=== PATIENT | male | born 1965 | race Caucasian/White ===

== ENCOUNTER 2019-05-21 11:25 | Outpatient (CLI) | payer OTHER, SELFPAY ==
--- NOTE | ~2019-05-21 | XR_ITS ---
EXAMINATION: HAND-GEO ARTHRITIS 3+VIEWS DATE: 05/21/2019 12:32 INDICATION: Unspecified osteoarthritis TECHNIQUE: Posteroanterior, lateral, and oblique views of the left and of the right hands as well as a ballcatchers view of both hands were obtained. COMPARISON: None. FINDINGS: Alignment is normal at both hands. No fracture. Small round metallic BB projecting over the soft tiss ues between the heads of the right third and fourth metacarpals. Moderate osteoarthritis at the right fifth proximal interphalangeal joint. Otherwise symmetric pattern of minimal to mild osteoarthritis at multiple metacarpophalangeal and predominantly distal interphalangeal joints. No cortical erosions to suggest inflammatory arthritis. Soft tissue swelling about the hands, wrists and distal forearms with subcutaneous edema most prominent along the ulnar side of the right wrist. IMPRESSION: 1. Disproportionate moderate osteoarthritis at the right fifth proximal interphalangeal joint suggest ing this is secondary to either prior trauma or infection. Otherwise typical symmetric pattern of min imal to mild polyarticular osteoarthritis at the bilateral hands. 2. Small metallic BB projecting over the soft tissues between the heads of the right third and fourth metacarpals. Reviewed, dictated and finalized at location A. TYPE OPERATOR IMPRESSION: 1. Disproportionate moderate osteoarthritis at the right fifth proximal interph alangeal joint suggesting this is secondary to either prior trauma or infection . Otherwise typical symmetric pattern of minimal to mild polyarticular osteoart hritis at the bilateral hands. 2. Small metallic BB projecting over the soft tissues between the heads of the right third and fourth metacarpals.
--- NOTE | ~2019-05-21 | XR_ITS ---
EXAMINATION: XR foot LT standing 2V EXAM DATE: 05/21/2019 12:32 INDICATION: No known recent injury provided at this time. Pain of the left foot. TECHNIQUE: Frontal and lateral projections of the left foot, standing.. There is no prior study for comparison. FINDINGS: Small to moderate-sized posterior and inferior left calcaneal spurs. There is old fifth me tatarsal base avulsion fracture. There is mild polyarticular midfoot and metatarsophalangeal primary osteoarthritis. There are no bony erosions identified. There are no acute fractures or dislocations identified. There is no subcutaneous gas. The soft tissue is unremarkable. There are no radiopaqu e foreign bodies. IMPRESSION: 1. Mild polyarticular left foot osteoarthritis. 2. Calcaneal spurs. Reviewed, dictated and finalized at location B. OW OPERATOR
--- NOTE | ~2019-05-21 | XR_ITS ---
EXAMINATION: XR foot RT standing 2V EXAM DATE: 05/21/2019 12:32 INDICATION: No known recent injury provided at this time. Pain of the right foot. TECHNIQUE: Frontal and lateral projections of the right foot, standing. There is no prior study for comparison. FINDINGS: There is mild polyarticular midfoot and metatarsophalangeal primary osteoarthritis. Small to moderate-sized posterior and inferior right calcaneal spurs. There are no bony erosions identified . There are no acute fractures or dislocations identified. There is no subcutaneous gas. The soft t issue is unremarkable. There are no radiopaque foreign bodies. IMPRESSION: 1. Mild polyarticular right foot osteoarthritis. 2. Calcaneal spurs. Reviewed, dictated and finalized at location B. N PROG COORD
[2019-05-21 17:27] LABS: Erythrocyte Sedimentation Rate 25 mm/hr (0-20)
[2019-05-21 17:59] LABS: CRP 3.4 mg/dL (<1.0)
[2019-05-24 12:56] LABS: Angiotensin Converting Enzyme 31 U/L (9-67)
[2019-05-25 05:07] LABS: Thyroid Peroxidase Antibodies <1 IU/mL (<9)
[2019-05-25 16:44] LABS: ANCA Screen Negative (Negative); Myeloperoxidase Ab <1.0 AI (<1.0); Proteinase-3 Ab <1.0 AI (<1.0); S cerevisiae Ab (IgA) 5.3 U (<=20.0)
== END 2019-05-21 11:26 | disposition home or self-care (01) ==
PROVIDERS: Internal Medicine; Visit Provider Internal Medicine Hematology & Oncology
DX: R70.0 Elevated erythrocyte sedimentation rate (principal); M19.90 Unspecified osteoarthritis, unspecified site; M19.042 Primary osteoarthritis, left hand; M19.041 Primary osteoarthritis, right hand; Z18.89 Other specified retained foreign body fragments; M19.072 Primary osteoarthritis, left ankle and foot; M77.32 Calcaneal spur, left foot; M19.071 Primary osteoarthritis, right ankle and foot; M77.31 Calcaneal spur, right foot
CPT/HCPCS: 36415; 73130; 73620; 82164; 85652; 86021; 86140; 86376; 86671

== ENCOUNTER 2019-09-02 10:38 | Outpatient (CLI) | payer OTHER, SELFPAY ==
[2019-09-02 12:45] LABS: CRP 2.2 mg/dL (<1.0)
[2019-09-02 14:09] LABS: Erythrocyte Sedimentation Rate 58 mm/hr (0-20)
== END 2019-09-02 10:39 | disposition home or self-care (01) ==
PROVIDERS: PCP Family Medicine Adolescent Medicine; Visit Provider Internal Medicine
DX: R70.0 Elevated erythrocyte sedimentation rate (principal); M19.90 Unspecified osteoarthritis, unspecified site
CPT/HCPCS: 36415; 85652; 86140

== ENCOUNTER 2019-11-03 10:29 | Outpatient (CLI) | payer OTHER, SELFPAY ==
[2019-11-03 12:35] LABS: Add Urine Microscopic? NO; Appearance Urine Clear (Clear); Bilirubin Urine Negative (Negative); Blood Urine Negative (Negative); Color Urine Yellow (Yellow); Glucose Urine UA Negative (Negative); Ketones Urine Negative (Negative); Leukocyte Esterase Ur Negative LEU/UL (Negative); Nitrate Urine Negative (Negative); Protein Urine Negative (Negative); Specific Grav Ur 1.015 (1.001-1.035); Urobilinogen Urine Negative mg/dL (<2.0)
[2019-11-03 12:49] LABS: CRP 1.4 mg/dL (<1.0)
[2019-11-03 12:55] LABS: Erythrocyte Sedimentation Rate 50 mm/hr (0-20)
== END 2019-11-03 10:30 | disposition home or self-care (01) ==
PROVIDERS: PCP Family Medicine Adolescent Medicine; Visit Provider Internal Medicine
DX: M19.90 Unspecified osteoarthritis, unspecified site (principal); Z79.899 Other long term (current) drug therapy; R70.0 Elevated erythrocyte sedimentation rate; M35.3 Polymyalgia rheumatica
CPT/HCPCS: 36415; 81003; 85652; 86140

== ENCOUNTER 2020-04-19 15:22 | Outpatient (CLI) | payer OTHER, SELFPAY ==
[2020-04-19 16:50] LABS: Erythrocyte Sedimentation Rate 20 mm/hr (0-20)
[2020-04-19 16:53] LABS: CRP 1.5 mg/dL (<1.0)
== END 2020-04-19 15:23 | disposition home or self-care (01) ==
LOC: ANHLAB 15:23
PROVIDERS: Family Provider Family Medicine Adolescent Medicine; PCP Family Medicine Adolescent Medicine; Visit Provider Internal Medicine
DX: M35.3 Polymyalgia rheumatica (principal)
CPT/HCPCS: 36415; 85652; 86140

== ENCOUNTER 2020-10-13 08:06 | Outpatient (CLI) | payer OTHER, SELFPAY ==
[2020-10-13 08:26] LABS: Hematocrit 42.6 % (42.0-52.0); Hemoglobin 14.3 g/dL (14.0-18.0); Mean Corpuscular HGB Conc 33.6 g/dl (32-36); Mean Corpuscular Hemoglobin 29.9 pg (26-34); Mean Corpuscular Volume 89.1 fl (80-100); Mean Platelet Volume 8.8 fl (7.4-10.4); Platelet Count Result 201 k/mm3 (150-375); Red Blood Count 4.78 M/mm3 (4.6-6.20); Red Cell Distribution Width 14.2 % (11.5-14.5); White Blood Count 7.1 K/mm3 (4.5-10.0)
[2020-10-13 10:22] LABS: Add Urine Microscopic? YES; Appearance Urine Sl Cloudy (Clear); Color Urine Yellow (Yellow); pH Urine 6.5 (5.0-9.0)
[2020-10-13 10:23] LABS: Blood Urine Negative (Negative); Glucose Urine UA Negative (Negative); Ketones Urine Negative (Negative); Protein Urine Trace mg/dL (Negative)
[2020-10-13 10:30] LABS: Bilirubin Urine Negative (Negative); Leukocyte Esterase Ur Negative LEU/UL (Negative); Nitrate Urine Negative (Negative); Urobilinogen Urine 0.2 mg/dL (<2.0)
[2020-10-13 10:32] LABS: RBC Urine None seen /hpf (0-2); Squamous Epithelial Cell Urine Few /hpf (Few); WBC Urine 0-3 /hpf (0-3)
[2020-10-13 10:33] LABS: Bacteria Urine None seen /hpf
[2020-10-13 11:54] LABS: Alanine Aminotransferase 23 U/L (4-50); Albumin Level 4.4 g/dL (3.5-5.1); Alkaline Phosphatase 81 U/L (38-126); Anion Gap 10 mmol/L (8-16); Aspartate Amino Transferase 28 U/L (17-59); Blood Urea Nitrogen 16 mg/dL (9-20); CRP 1.5 mg/dL (<1.0); Carbon Dioxide 28 mmol/L (22-30); Chloride 105 mmol/L (98-107); Estimated Glomerular Filt Rate > 60; Glucose 102 mg/dL (65-110); Potassium 4.3 mmol/L (3.4-5.0); Sodium 143 mmol/L (137-145); Uric Acid 7.3 mg/dL (3.5-8.5)
[2020-10-13 13:09] LABS: Erythrocyte Sedimentation Rate 39 mm/hr (0-20)
== END 2020-10-13 08:07 | disposition home or self-care (01) ==
LOC: ANHLAB 08:08
PROVIDERS: PCP Family Medicine Adolescent Medicine; Visit Provider Internal Medicine
DX: R70.0 Elevated erythrocyte sedimentation rate (principal); M35.3 Polymyalgia rheumatica; M10.9 Gout, unspecified; M19.90 Unspecified osteoarthritis, unspecified site
CPT/HCPCS: 36415; 80053; 81001; 84550; 85027; 85652; 86140

== ENCOUNTER 2020-11-04 07:15 | Outpatient (CLI) | payer OTHER, SELFPAY ==
--- NOTE | ~2020-11-04 | XR_ITS ---
EXAMINATION: XR chest 2V DATE: 11/04/2020 07:35 INDICATION: Polymyalgia rheumatica. TECHNIQUE: Frontal and lateral views of the chest were obtained. COMPARISON: CT abdomen 01/09/2007 FINDINGS: The chest demonstrates clear lungs without pneumonia, pleural effusion, or pneumothorax. Th e heart size is normal. IMPRESSION: 1. No acute cardiopulmonary disease. Reviewed, dictated and finalized at location A.
--- NOTE | ~2020-11-04 | XR_ITS ---
EXAMINATION: XR sacroiliac joints min 3V DATE: 11/04/2020 07:35 INDICATION: Polymyalgia rheumatica TECHNIQUE: AP and left and right oblique views of the sacroiliac joints were obtained. COMPARISON: None. FINDINGS: Alignment is normal. Mild osteoarthritis with mild joint space narrowing at the bilateral sacroiliac joints. No erosions to suggest inflammatory sacroiliitis. Sacral iliac joints are intact. No fracture s. Additional mild osteoarthritis at the bilateral hips. Lower lumbar spondylosis with L5 spondylolys is evident on prior CT dated 01/09/2007. IMPRESSION: 1. Mild bilateral hip and sacroiliac osteoarthritis. No erosions to suggest inflammatory sacroiliitis . Reviewed, dictated and finalized at location A. IMPRESSION: 1. Mild bilateral hip and sacroiliac osteoarthritis. No erosions to suggest inf lammatory sacroiliitis.
== END 2020-11-04 07:16 | disposition home or self-care (01) ==
PROVIDERS: PCP Family Medicine Adolescent Medicine; Visit Provider Internal Medicine
DX: M35.3 Polymyalgia rheumatica (principal)
CPT/HCPCS: 71046; 72202

== ENCOUNTER 2021-08-15 01:57 | Day surgery (SDC) | payer OTHER, SELFPAY ==
[2021-08-02 09:09] VITALS: BMI 47.6
--- NOTE | 2021-08-12 16:52 | PM.HPGS ---
History of Present Illness History of Present Illness Consent: Risks, benefits, and alternatives have been discussed and questions answered. Patient agrees to proceed with procedure. Chief complaint: neoplasm screening Narrative: Domingo Rashid is a 56 year old male Referred for colon cancer screening. This is his 1st colonoscopy. Review of Systems Review of Systems: All systems reviewed & are unremarkable except as noted in HPI and below PMFSH Past Medical History Medical History Acquired spondylolisthesis of lumbosacral region Erectile dysfunction Gout Hip pain, left Hypothyroid Inflammatory arthritis Morbid (severe) obesity due to excess calories NAN (obstructive sleep apnea) CPAP Seronegative rheumatoid arthritis of multiple sites Testicular hypofunction Surgical History Surgical History History of appendectomy History of right knee surgery scope Family History Family History Father Lung disease Acute myocardial infarction Heart disease Hypertension Emphysema of left lung Mother Diabetes mellitus Social History Social History Smoking status: Never smoker Tobacco type: smokeless tobacco Smokeless tobacco user: chewing tobacco Alcohol intake: current Drinks per week: 5 Alcohol use details: weekly Substance use: never Substance use type: does not use Living arrangements: with family Gender identity (if verbalized by the patient): Male Sexual Orientation (if Verbalized by the Patient): Straight or Heterosexual Spiritual care concerns: No Agree to blood products: Yes Meds Home Medications and Allergies Home Medications Medication Instructions Recorded Confirmed Type allopurinol 300 mg tablet 300 mg PO DAILY #90 tablet 05/30/21 08/02/21 Rx hydroxychloroquine 200 mg tablet 400 mg PO DAILY #30 tablet 07/12/21 08/02/21 Rx Allergies Allergy/AdvReac Type Severity Reaction Status Date / Time No Known Allergies Allergy Unknown Verified 08/15/21 06:48 Exam Resp: Auscultation: clear to auscultation bilaterally Cardio: Rate: regular rate Rhythm: regular rhythm GI: GI Palp: Yes Soft to palpation and No Tenderness to palpation present (GI) Assessment and Plan Assessment and plan (1) Colon cancer screening: Code(s): Z12.11 - Encounter for screening for malignant neoplasm of colon Status: Acute Assessment and Plan: Colonoscopy with possible biopsy or polypectomy or cautery or injection of substances.
[2021-08-15 06:49] VITALS: BP 144/90; PULSE 59; RESP 20; TEMP 36.4; O2SAT 98
--- NOTE | 2021-08-15 06:51 | WPDANESEPPF ---
Anes - Initial Pre Proc Eval Procedure: Operation Date: 08/15/21 08:00 Proposed Procedures p Screening Colonoscopy - Lisandro Barber MD Date/Time: 08/15/21 06:51 Surgeon: Lisandro Barber MD Pre Op Diagnosis: neoplasm screening Patient Data Age: 56 Gender: M Height: 1.83 m Weight: 159.2 kg Allergies Allergy/AdvReac Type Severity Reaction Status Date / Time No Known Allergies Allergy Unknown Verified 08/15/21 06:48 Home Medications Medication Instructions Recorded Confirmed Type allopurinol 300 mg tablet 300 mg PO DAILY #90 tablet 05/30/21 08/02/21 Rx hydroxychloroquine 200 mg tablet 400 mg PO DAILY #30 tablet 07/12/21 08/02/21 Rx Patient hx anesthesia problems: none Family hx anesthesia problems: none Results Review: All pre-operative results and documents have been reviewed as part of the pre-operative evaluation. [facility] Past Medical History Medical History (Updated 08/15/21 @ 06:51 by Christian Davila DO) Acquired spondylolisthesis of lumbosacral region Erectile dysfunction Gout Hip pain, left Hypothyroid Inflammatory arthritis Morbid (severe) obesity due to excess calories NAN (obstructive sleep apnea) CPAP Seronegative rheumatoid arthritis of multiple sites Testicular hypofunction Surgical History Surgical History History of appendectomy History of right knee surgery scope Family History Family History Father Lung disease Acute myocardial infarction Heart disease Hypertension Emphysema of left lung Mother Diabetes mellitus Social History Social History Smoking status: Never smoker Tobacco type: smokeless tobacco Smokeless tobacco user: chewing tobacco Alcohol intake: current Drinks per week: 5 Alcohol use details: weekly Substance use: never Substance use type: does not use Living arrangements: with family Gender identity (if verbalized by the patient): Male Sexual Orientation (if Verbalized by the Patient): Straight or Heterosexual Spiritual care concerns: No Agree to blood products: Yes Anes - Eval Final PreProcedure Day of Procedure 08/15/21 06:51 Patient weight: morbidly obese Heart: regular rate and rhythm Lungs: clear to auscultation and normal air movement Airway: Mallampati scale class III Neurological: alert and oriented Last oral intake: >/= 8 hours ASA classification: III Emergent: no Anesthetic plan: proceed Anesthesia type and monitoring: general GIVS and standard monitoring Results Review: All pre-operative results and documents have been reviewed as part of the pre-operative evaluation. Informed Consent: The patient's anesthetic plan and its attendant risks and benefits were discussed with the patient/family/POA. Questions were solicited and answers provided to the satisfaction of the patient/family/POA.
[2021-08-15] MEDS: LACTATED RINGERS 1,000 ML 150 ML IV CONT (07:12)
[2021-08-15 08:23] VITALS: BP 123/79; PULSE 72; RESP 20; O2SAT 96
[2021-08-15 08:33] VITALS: BP 129/83; PULSE 62; RESP 20; O2SAT 95
[2021-08-15 08:43] VITALS: BP 146/92; PULSE 61; RESP 20; O2SAT 96
== END 2021-08-15 08:45 | disposition home or self-care (01) ==
PROVIDERS: PCP Family Medicine Adolescent Medicine; Visit Provider Internal Medicine Gastroenterology
PROC: 0DJD8ZZ Inspection of Lower Intestinal Tract, Via Natural or Artificial Opening Endoscopic (ICD-10-PCS; CPT 45378; principal; 2021-08-15 08:00)
DX: Z12.11 Encounter for screening for malignant neoplasm of colon (principal); K57.32 Diverticulitis of large intestine without perforation or abscess without bleeding; M10.9 Gout, unspecified; M06.09 Rheumatoid arthritis without rheumatoid factor, multiple sites; G47.33 Obstructive sleep apnea (adult) (pediatric); E66.01 Morbid (severe) obesity due to excess calories; Z68.42 Body mass index [BMI] 45.0-49.9, adult; F17.220 Nicotine dependence, chewing tobacco, uncomplicated
CPT/HCPCS: 45380; 88305; J2704; J7120

== ENCOUNTER 2021-10-10 08:03 | Outpatient (CLI) | payer OTHER, SELFPAY ==
[2021-10-10 09:02] LABS: Alanine Aminotransferase 26 U/L (6-50); Albumin Level 4.5 g/dL (3.5-5.1); Alkaline Phosphatase 85 U/L (38-126); Anion Gap 8 mmol/L (8-16); Aspartate Amino Transferase 29 U/L (17-59); Blood Urea Nitrogen 19 mg/dL (9-20); Calcium 8.8 mg/dL (8.4-10.2); Carbon Dioxide 24 mmol/L (22-30); Chloride 108 mmol/L (98-107); Cholesterol 171 mg/dL (0-200); Estimated Glomerular Filt Rate > 60; Glucose 105 mg/dL (65-110); HDL Direct 42 mg/dL; Potassium 4.1 mmol/L (3.4-5.0); Sodium 140 mmol/L (137-145); Triglycerides 129 mg/dL (<150)
[2021-10-10 09:13] LABS: LDL Cholesterol Direct 86 mg/dL
[2021-10-10 09:33] LABS: Prostate Specific Antigen 0.3 ng/mL (< OR = 4.0)
[2021-10-10 10:02] LABS: Hemoglobin A1C 5.2 % (<5.7)
== END 2021-10-10 08:04 | disposition home or self-care (01) ==
LOC: ANHLAB 08:05
PROVIDERS: PCP Family Medicine Adolescent Medicine; Visit Provider Physician Assistant
DX: E03.9 Hypothyroidism, unspecified (principal); Z13.220 Encounter for screening for lipoid disorders; Z12.5 Encounter for screening for malignant neoplasm of prostate; R73.03 Prediabetes
CPT/HCPCS: 36415; 80053; 80061; 83036; 84153; 84443; G0103

== ENCOUNTER → 2021-12-13 10:36 | Outpatient (CLI) | payer OTHER, SELFPAY ==
--- NOTE | ~2021-12-13 | XR_ITS ---
XR lumbar spine 2-3V DATE: 12/13/2021 11:12 INDICATION: Fall 4 days ago. Low back pain radiating down left leg TECHNIQUE: AP, lateral, coned lateral lumbosacral views COMPARISON: None FINDINGS: There is moderate anterior wedge compression fracture deformity of L1, very possibly recent , with suggestion of some lucencies. No other lumbar spine fracture or bone destruction is evident. The included lower thoracic and lumbar pedicles are intact. There is grade 2 anterolisthesis and severe degenerative disc disease and hypertrophic spurring at L5 -S1, with probable bilateral L5 pars interarticularis defects. There is degenerative spurring of the lumbar and particularly lower thoracic spine. The sacroiliac joints are intact. IMPRESSION: Probable recent moderate anterior wedge compression fracture of L1 Grade 2 anterolisthesis and severe degenerative disc disease at L5-S1. Prominent degenerative spurrin g of the lumbar and particularly lower thoracic spine Reviewed, dictated and finalized at location B. IMPRESSION: Probable recent moderate anterior wedge compression fracture of L1 Grade 2 anterolisthesis and severe degenerative disc disease at L5-S1. Prominen t degenerative spurring of the lumbar and particularly lower thoracic spine
== END ==
PROVIDERS: PCP Family Medicine Adolescent Medicine; Visit Provider Physician Assistant
DX: M79.662 Pain in left lower leg (principal); M51.37 Other intervertebral disc degeneration, lumbosacral region
CPT/HCPCS: 72100

== ENCOUNTER → 2021-12-13 10:38 | Outpatient (CLI) | payer OTHER, SELFPAY ==
--- NOTE | ~2021-12-13 | XR_ITS ---
EXAMINATION: XR hip BI wo pelvis DATE: 12/13/2021 11:12 INDICATION: Rheumatoid arthritis without rheumatoid factor. TECHNIQUE: 2 views of the right hip and 2 views of the left hip were obtained. COMPARISON: None. FINDINGS: Bone alignment is normal. No fracture. There is mild right hip osteoarthritis and moderate left hip osteoarthritis. IMPRESSION: 1. Mild right hip osteoarthritis and moderate left hip osteoarthritis. Reviewed, dictated and finalized at location A.
== END ==
PROVIDERS: PCP Internal Medicine; Visit Provider Internal Medicine
DX: M06.09 Rheumatoid arthritis without rheumatoid factor, multiple sites (principal); M16.0 Bilateral primary osteoarthritis of hip
CPT/HCPCS: 73521

== ENCOUNTER 2021-12-15 08:22 | Outpatient (CLI) | payer OTHER, SELFPAY ==
--- NOTE | ~2021-12-15 | MR_ITS ---
EXAMINATION: MR lumbar spine wo con DATE: 12/15/2021 09:06 INDICATION: L1 fracture. Constipation. TECHNIQUE: Magnetic resonance imaging (MRI) of the lumbar spine was performed without intravenous con trast. Sequences included sagittal T2-weighted FSE, sagittal T2-weighted FS FSE, sagittal T1-weighted FSE, and axial T2-weighted FSE. COMPARISON: Lumbar spine radiographs 12/13/2021 FINDINGS: There is 5 degrees dextrocurvature of thoracolumbar spine. There is a 16 mm anterolisthesis of L5 on S1. There are chronic bilateral L5 pars defects. There is chronic 1/5 height loss of L5 manny tebral body posteriorly. There is a burst fracture of L1 with 1/5 loss of height, bone marrow edema, and low signal fracture lines without retropulsion of bone into the central spinal canal. There is 3 mm retrolisthesis of L4 on L5. There is moderately decreased disc height at L5-S1. The distal spinal cord signal intensity is normal. The conus medullaris is at L1. The following disc levels are specifi chela discussed: L1-L2: The disc is bulging and has an annular fissure. There is mild bilateral facet joint osteoarthr itis. There is moderate bilateral neural foraminal stenosis. There is mild central canal stenosis. L2-L3: The disc does not extend beyond the endplate margin. There is moderate bilateral facet joint o steoarthritis. There is no neural foraminal stenosis. There is no central canal stenosis. L3-L4: The disc does not extend beyond the endplate margin. There is mild bilateral facet joint osteo arthritis. There is no neural foraminal stenosis. There is no central canal stenosis. L4-L5: The disc is bulging and has an annular fissure. There is no facet joint osteoarthritis. There is moderate bilateral neural foraminal stenosis. There is mild central canal stenosis. L5-S1: The disc is bulging and has an annular fissure. There is mild bilateral facet joint osteoarthr itis. There is moderate bilateral neural foraminal stenosis. There is no central canal stenosis. IMPRESSION: 1. Subacute L1 burst fracture, stable from 12/13/2021. 2. Moderate lumbar spondylosis. 3. Chronic bilateral L5 pars defects with grade 3 anterolisthesis of L5 on S1. Reviewed, dictated and finalized at location A.
== END 2021-12-15 08:23 | disposition home or self-care (01) ==
PROVIDERS: PCP Family Medicine Adolescent Medicine; Visit Provider Physician Assistant
DX: S32.000A Wedge compression fracture of unspecified lumbar vertebra, initial encounter for closed fracture (principal); X58.XXXA Exposure to other specified factors, initial encounter; M47.896 Other spondylosis, lumbar region
CPT/HCPCS: 72148

== ENCOUNTER 2023-02-27 08:06 | Outpatient (CLI) | payer OTHER, SELFPAY ==
[2023-02-27 08:49] LABS: Basophils Absolute Auto 0.1 K/mm3 (0.0-0.1); Basophils Percent Auto 0.8 % (0.2-1.2); Eosinophils Absolute Auto 0.2 K/mm3 (0-0.3); Hematocrit 43.1 % (42.0-52.0); Hemoglobin 14.5 g/dL (14.0-18.0); Immature Granulocyte Absolute 0.03 K/mm3 (0.00-0.031); Immature Granulocyte Percent A 0.5 % (0-0.5); Lymphocytes Absolute Auto 1.39 K/mm3 (0.9-3.2); Lymphocytes Percent Auto 23.4 % (18.3-44.2); Mean Corpuscular HGB Conc 33.6 g/dl (32-36); Mean Corpuscular Volume 92.3 fl (80-100); Mean Platelet Volume 8.8 fl (7.4-10.4); Monocytes Absolute Auto 0.7 K/mm3 (0.1-0.6); Monocytes Percent Auto 11.6 % (2.6-8.5); Neutrophils Absolute Auto 3.6 K/mm3 (1.3-6.7); Neutrophils Percent Auto 60.7 % (45.5-73.1); Platelet Count Result 196 k/mm3 (150-375); Red Blood Count 4.67 M/mm3 (4.6-6.20); Red Cell Distribution Width 12.9 % (11.5-14.5); White Blood Count 5.9 K/mm3 (4.5-10.0)
[2023-02-27 10:02] LABS: Alanine Aminotransferase 20 U/L (6-50); Albumin Level 4.6 g/dL (3.5-5.1); Alkaline Phosphatase 80 U/L (38-126); Anion Gap 12 mmol/L (8-16); Aspartate Amino Transferase 25 U/L (17-59); Bilirubin,Total 1.1 mg/dL (0.2-1.3); Blood Urea Nitrogen 18 mg/dL (9-20); Calcium 9.7 mg/dL (8.4-10.2); Carbon Dioxide 25 mmol/L (22-30); Chloride 104 mmol/L (98-107); Cholesterol 167 mg/dL (0-200); Estimated Glomerular Filt Rate > 60; Glucose 97 mg/dL (65-110); HDL Direct 47 mg/dL; Potassium 4.5 mmol/L (3.4-5.0); Sodium 141 mmol/L (137-145); Triglycerides 85 mg/dL (<150); Uric Acid 6.3 mg/dL (3.5-8.5)
[2023-02-27 10:13] LABS: LDL Cholesterol Direct 84 mg/dL
== END 2023-02-27 08:07 | disposition home or self-care (01) ==
PROVIDERS: Nurse Practitioner Family; PCP Family Medicine Adolescent Medicine; Visit Provider Internal Medicine Hematology & Oncology
DX: E03.9 Hypothyroidism, unspecified (principal); M10.9 Gout, unspecified; Z13.220 Encounter for screening for lipoid disorders; R03.0 Elevated blood-pressure reading, without diagnosis of hypertension
CPT/HCPCS: 36415; 80053; 80061; 82607; 84443; 84550; 85025

== ENCOUNTER → 2023-05-01 07:18 | Outpatient (CLI) | payer OTHER, SELFPAY ==
--- NOTE | ~2023-05-01 | XR_ITS ---
EXAMINATION: XR hip LT min 2V INDICATION: Left hip pain TECHNIQUE: Two views of the left hip are obtained. COMPARISON: 12/13/2021 FINDINGS: There is unchanged moderate left hip osteoarthritis. No fracture is identified. Bone alignm ent is normal. The femoral head is well-seated in the acetabulum. IMPRESSION: 1. Moderate osteoarthritis of the left hip without acute osseous abnormality. Reviewed, dictated and finalized at location L. RAL SCIENCES MANAGER
== END ==
PROVIDERS: PCP Nurse Practitioner Family; Visit Provider Nurse Practitioner Family
DX: M16.12 Unilateral primary osteoarthritis, left hip (principal)
CPT/HCPCS: 73502